=== PATIENT | male | born 1995 | race Caucasian/White ===

== ENCOUNTER 2019-02-11 09:12 | Emergency (ER) | payer OTHER ==
[2019-02-11] MEDS ORDERED: Ondansetron ODT TAB* 4 MG PO ONE (10:18)
[2019-02-11 10:20] VITALS: BP 121/78
[2019-02-11] MEDS ORDERED: Acetaminophen TAB* 325 MG PO ONE (10:24)
--- NOTE | 2019-02-11 10:40 | ED ---
Headache - HPI Summary HPI Summary: 23 yr old with onset of severe headache this morning upon waking up. Left sided, pounding and retroorbital in nature. No associated focal neuro symptoms. He has had vomiting and light sensitivity with mild upper neck pain associated. No fever or chills. He has not had a headache like this before. Onset of symptoms about 7 am today. - History Of Current Complaint Chief Complaint: UCGeneralIllness Stated Complaint: FABIAN,VOMITING Time Seen by Provider: 02/11/19 10:10 - Allergies/Home Medications Allergies/Adverse Reactions: Allergies Allergy/AdvReac Type Severity Reaction Status Date / Time Sulfa (Sulfonamide Allergy Rash Verified 02/11/19 10:20 Antibiotics) casey Allergy Rash Uncoded 02/11/19 10:20 Home Medications: Home Medications NK [No Home Medications Reported] 02/11/19 [History Confirmed 02/11/19] PMH/Surg Hx/FS Hx/Imm Hx Infectious Disease History: No Infectious Disease History: Denies: Traveled Outside the [place] in Last 30 Days - Family History Known Family History: Positive: None - denies - Social History Alcohol Use: None Substance Use Type: Reports: Marijuana Smoking Status (MU): Never Smoked Tobacco Review of Systems Constitutional: Negative Positive: Photophobia Positive: Headache. Negative: Weakness, Paresthesia, Numbness, Syncope, Slurred Speech All Other Systems Reviewed And Are Negative: Yes Physical Exam Triage Information Reviewed: Yes Vital Signs On Initial Exam: Initial Vitals Temp Pulse Resp BP Pulse Ox 97.8 F 62 16 121/78 97 02/11/19 10:17 02/11/19 10:17 02/11/19 10:17 02/11/19 10:17 02/11/19 10:17 Vital Signs Reviewed: Yes Appearance: Positive: Well-Appearing, No Pain Distress Skin: Positive: Warm, Skin Color Reflects Adequate Perfusion Head/Face: Positive: Normal Head/Face Inspection Eyes: Positive: EOMI, EDDIE ENT: Positive: Normal ENT inspection Neck: Positive: Nontender, Other: - some discomfort with flex and extend of neck. Respiratory/Lung Sounds: Positive: Clear to Auscultation, Breath Sounds Present Cardiovascular: Positive: RRR. Negative: Murmur Abdomen Description: Negative: Distended Musculoskeletal: Positive: Strength/ROM Intact Neurological: Positive: Sensory/Motor Intact, Alert, Oriented to Person Place, Time, CN Intact II-III, Normal Gait, Speech Normal Psychiatric: Positive: Normal - Brigette Coma Scale Best Eye Response: 4 - Spontaneous Best Motor Response: 6 - Obeys Commands Best Verbal Response: 5 - Oriented Coma Scale Total: 15 Diagnostics - Vital Signs Vital Signs Temp Pulse Resp BP Pulse Ox 02/11/19 10:17 97.8 F 62 16 121/78 97 - Laboratory Lab Statement: Any lab studies that have been ordered have been reviewed, and results considered in the medical decision making process. Headache Course/Dx - Course Course Of Treatment: 23 yr old with headache, unusual onset, intensity and length of duration for him. I have recommended ambulance transport to the ER for further work up, and he is signing out AMA. - Diagnoses Provider Diagnoses: Headache Discharge - Sign-Out/Discharge Documenting (check all that apply): Patient Departure All imaging exams completed and their final reports reviewed: No Studies - Discharge Plan Condition: Good Disposition: AGAINST MEDICAL ADVICE Patient Education Materials: Acute Headache (ED) Referrals: No Primary Care Phys,NOPCP [Primary Care Provider] - [facility] [place]] - 1 Day Additional Instructions: IT is recommended you go to the hospital by ambulance for work up of your headache. You have refused the ambulance, and are signing AMA for refusal of transport to the ER. Be sure your significant other drives you right away to the hospital for further evaluation. - Billing Disposition and Condition Condition: GOOD Disposition: Against Medical Advice
== END 2019-02-11 10:48 | disposition left against medical advice (07) ==
LOC: UCCORT 09:12
DX: R51 Headache (principal)
CPT/HCPCS: 99202; A9270-GY; G0463